=== PATIENT | female | born 1995 | race Caucasian/White ===

== ENCOUNTER 2017-03-23 02:16 | Inpatient (IN) | payer MEDICAID, OTHER ==
[2017-03-23] VITALS (39 sets, daily range): BP systolic 103–149; BP diastolic 45–86; PULSE 18–108; RESP 16–18; TEMP 97.6–98.4
[~2017-03-23] VITALS: Ht 175.3 cm; Wt 102.1 kg
[~2017-03-23 02:16] MED LIST: DEPO400I IM; Z.0.NO CURRENT MEDS
[2017-03-23] MEDS ORDERED: LACTATED RINGER'S 1000 ML INJ 1,000 ML IV PRN (03:43)
[2017-03-23] MEDS ORDERED: LACTATED RINGER'S 1000 ML INJ 1,000 ML IV SCH (03:43)
--- NOTE | 2017-03-23 03:43 | PD ---
HPI Chief Complaint Contractions Date Seen: Mar 23, 2017 Time Seen: 03:40 Travel History International Travel<30 Days: No Contact w/Intl Traveler<30Days: No Known Affected Area: No History of Present Illness HPI 21-year-old who is at 40 weeks gestation comes in due to contractions which have been going on since earlier this morning on March 22. Patient is group B strep negative and she was seen in the office yesterday with a cervix of 1 cm. Patient denies any obstetrical complications. Weeks Gestation: 40 Para: 0 : 1 History Past Medical History Medical History: Denies Significant Hx Past Surgical History Surgical History: No Previous Surgery Family History Family History: Negative Social History Alcohol Use: No Tobacco Use: No Substance Abuse: No Allergies-Medications (Allergen,Severity, Reaction): Coded Allergies: No Known Allergies (Verified , 03/23/17) Home Meds Reported Medications Miscellaneous (No Current Meds) Misc 06/01/11 Discontinued Reported Medications Medroxyprogesterone Acetate (Depo-Provera) 400 Mg/Ml Inj, 150 MG IM Q90D, INJ 01/18/14 Review of Systems Except as stated in HPI: all other systems reviewed are Neg Physical Exam Narrative GENERAL: Well-nourished, well-developed patient. SKIN: Warm and dry. HEAD: Normocephalic and atraumatic. EYES: No scleral icterus. No injection or drainage. ENT: No nasal drainage noted. Mucous membranes pink. Airway patent. NECK: Supple, trachea midline. No JVD. CARDIOVASCULAR: Regular rate and rhythm without murmurs, gallops, or rubs. RESPIRATORY: Breath sounds equal bilaterally. No accessory muscle use. BREASTS: Bilateral exam showed no masses , no retractions, no nipple discharge. ABDOMEN/GI: Abdomen soft, non-tender, bowel sounds present, no rebound, no guarding Gravid to [40-] weeks size Fundal Height: [-] GENITOURINARY: External Genitalia: intact and normal in appearance BUS glands: [-Normal] Cervix: [Mid position-] Dilatation: [-5] Effacement: [-100] Station: [--2] Presentation: [-Vertex] Membranes: [intact ] Uterine Contractions: [-Every 3-5] FHT's: Category: [-1] Baseline: [-140] Reactive: [-Moderate] Variability: [-Moderate] Decels: [Absent-] EXTREMITIES: No cyanosis or edema. BACK: Nontender without obvious deformity. No CVA tenderness. NEUROLOGICAL: Awake and alert. Motor and sensory grossly within normal limits. Five out of 5 muscle strength in all muscle groups. Normal speech. Data Data Vital Signs Reviewed: Yes Group B Strep: Negative [facility] Medical Record Reviewed: Yes Plan 21-year-old who is at 40 weeks gestation here in active labor, group B strep negative Will admit to labor patient does desire epidural Diagnosis Diagnosis: Primary Impression: 40 weeks gestation of Additional Impression: Irregular uterine contractions Joan Witt MD Mar 23, 2017 03:43
[2017-03-23] MEDS ORDERED: SODIUM CHLORID 0.9% 500 ML INJ 500 ML IV PRN (03:45)
[2017-03-23] MEDS ORDERED: LIDOCAINE HCL 1% 50 ML VIAL I-DERMAL PRN (03:45)
[2017-03-23] MEDS ORDERED: LIDOCAINE HCL 1% 50 ML VIAL INFIL PRN (03:45)
[2017-03-23] MEDS ORDERED: CITRIC ACID-SODIUM CITRATE LIQ 30 ML UDC PO SCH (03:45)
[2017-03-23] MEDS ORDERED: MINERAL OIL 10 ML VIAL TOPICAL PRN (03:45)
[2017-03-23] MEDS ORDERED: OXYTOCIN 30 UNITS-500ML PREMIX 500 ML IV ONE (03:45)
[2017-03-23] MEDS ORDERED: ONDANSETRON HCL 4 MG/2 ML VIAL IV PRN (03:45)
[2017-03-23] MEDS ORDERED: SODIUM CHLOR 0.9% 1000 ML INJ 1,000 ML IV PRN (04:03)
[2017-03-23] MEDS ORDERED: fentaNYL 2MCG-BUPIV 0.125% INJ 100 ML ONE (04:09)
[2017-03-23 04:17] LABS: BASOPHIL % 0.2 % (0.0-2.0); EOSINOPHIL % 0.3 % (0.0-4.0); HEMATOCRIT 35.8 % (35.0-46.0); HEMO FLAGS DIFF FINAL; LYMPH % 12.8 % (9.0-44.0); LYMPHOCYTE # 1.7 TH/MM3 (1.0-4.8); MEAN CELL VOLUME 79.4 FL (80.0-100.0); MEAN CORPUSCULAR HEMOGLOBIN 25.7 PG (27.0-34.0); MEAN CORPUSCULAR HGB CONC 32.4 % (32.0-36.0); MONO % 9.9 % (0.0-8.0); NEUT % 76.8 % (16.0-70.0); PLATELET COUNT 199 TH/MM3 (150-450); RED BLOOD COUNT 4.51 MIL/MM3 (4.00-5.30)
[2017-03-23 05:13] LABS: BACTERIA, URINE RARE /hpf; BLOOD, URINE NEG (NEG); GLUCOSE,URINE NEG (NEG); KETONE, URINE NEG (NEG); MUCUS URINE FEW /lpf (OCC); NITRITE,URINE NEG (NEG); SQUAMOUS EPITHELIAL CELL URINE <1 /hpf (0-5); URINE COLOR LIGHT-YELLOW (YELLW/STRAW)
[2017-03-23 05:24] LABS: COMMENT (UR) CULT NOT INDICATED; CULTURE IF INDICATED CULT NOT INDICATED
[2017-03-23] MEDS ORDERED: OXYTOCIN 30 UNITS-500ML PREMIX 500 ML IV SCH ×2 (05:45→10:15)
--- NOTE | 2017-03-23 05:51 | PD.LABORPN ---
Subjective Subjective doing well Objective Vital Signs Vital Signs Date Time Temp Pulse Resp B/P (MAP) Pulse Ox O2 Delivery O2 Flow Rate FiO2 03/23/17 05:31 92 119/64 (82) 03/23/17 05:15 101 124/76 (92) 03/23/17 05:03 93 111/65 (80) 03/23/17 04:47 76 103/61 (75) 03/23/17 04:40 89 03/23/17 04:38 115/64 (81) 03/23/17 04:35 94 119/65 (83) 03/23/17 04:35 82 03/23/17 04:31 103 132/77 (95) 03/23/17 04:25 84 03/23/17 04:25 71 136/60 (85) 03/23/17 04:20 91 03/23/17 04:20 90 139/80 (99) 03/23/17 04:15 108 149/80 (103) 03/23/17 04:13 78 121/56 (77) 03/23/17 03:58 98.1 18 18 03/23/17 03:55 73 134/81 (98) Objective Pelvic Exam: Cervix: [-] Dilatation: 7 Effacement: 80 Station: -1 Presentation: [-] Membranes: SROM Uterine Contractions: [-] FHT's: Category: 1 Baseline: [-] Reactive: [-] Variability: [-] Decels: [-] Weeks Gestation: 40 Gest Age Assessed Date: Mar 23, 2017 Gest Age Assessed Time: 05:00 Pt started active labor?: Yes Active labor start date: Mar 22, 2017 Active labor start time: 17:30 Medical induction of labor?: No Artificial rupture of membrane: Yes Artificial ROM date: Mar 23, 2017 Artifical ROM time: 05:40 Assessment/Plan Problem List: (1) 40 weeks gestation of ICD Codes: Z3A.40 - 40 weeks gestation of Status: Acute Wu Lay MD Mar 23, 2017 05:51
--- NOTE | 2017-03-23 10:14 | PD.OB.DELI ---
Weeks gestation: 40 Gest age assessed date: Mar 23, 2017 Gest age assessed time: 05:00 Pt started active labor?: Yes Active labor start date: Mar 22, 2017 Active labor start time: 17:30 Medical induction of labor?: No Artificial rupture of membrane: Yes Artificial ROM date: Mar 23, 2017 Artifical ROM time: 05:40 Anesthesia: Epidural Episiotomy: Midline Vaginal Delivery: Normal Presentation: Occiput anterior Nuchal Cord: x1 Delayed cord clamping (45 sec): Yes : Male, Single Delivery date: Mar 23, 2017 Delivery time: 09:49 One Minute : 8 Five Minute : 9 Weight: 9# 8 Placenta: Spontaneous delivery, Intact, 3 vessel cord Laceration: 2 deg Repair: Chromic running Estimated blood loss: 300 Wu Lay MD Mar 23, 2017 10:14
[2017-03-23] MEDS ORDERED: oxyCODONE/ACETAMINOPHEN 5 MG/325 MG TAB PO PRN ×2 (10:15)
[2017-03-23] MEDS ORDERED: ONDANSETRON ODT 4 MG TAB PO PRN (10:15)
[2017-03-23] MEDS ORDERED: ZOLPIDEM TARTRATE 5 MG TAB PO PRN (10:15)
[2017-03-23] MEDS ORDERED: ALUMINUM/MAGNESIUM/SIMETH 30 ML CUP PO PRN (10:15)
[2017-03-23] MEDS ORDERED: BENZOCAINE 20% TOPICAL SPRAY 60 ML CAN TOPICAL PRN (10:15)
[2017-03-23] MEDS ORDERED: WITCH HAZEL 50%/GLYCERIN 12.5% 40 PAD JAR TOPICAL PRN (10:15)
[2017-03-23] MEDS ORDERED: SODIUM CHLORIDE 0.9% FLUSH 10 ML FLUSH IV FLUSH PRN (10:15)
[2017-03-23] MEDS: IBUPROFEN 600 MG TAB PO PRN ×2 (10:51→18:34)
[2017-03-23] MEDS ORDERED: NO SYSTEM NARCOTICS PRN (11:15)
[2017-03-23] MEDS ORDERED: DO NOT ADMINISTER ANTICOAGULANTS PRN (11:15)
[2017-03-23] MEDS ORDERED: ePHEDrine/NS 25 MG/5 ML SYR IV PRN (11:15)
[2017-03-23] MEDS ORDERED: fentaNYL 2MCG-BUPIV 0.125% 100 ML EPIDURAL SCH (11:15)
[2017-03-23] MEDS ORDERED: DIPHTH/TETANUS/ACEL PERTUSSIS (BOOSTER) 0.5 ML VIAL/PFS IM ONE (16:00)
[2017-03-23] MEDS ORDERED: MEASLES, MUMPS, RUBELLA VACCINE 0.5 ML VIAL SQ ONE (16:00)
[2017-03-23] MEDS: ACETAMINOPHEN 325 MG TAB PO PRN (18:33)
[2017-03-23] MEDS: DOCUSATE SODIUM 50 MG/SENNA 8.6 MG TAB PO PRN (18:33)
[2017-03-23] MEDS ORDERED: SODIUM CHLORIDE 0.9% FLUSH 10 ML FLUSH IV FLUSH SCH (21:00)
[2017-03-24] MEDS: IBUPROFEN 600 MG TAB PO PRN ×2 (04:01→10:05)
[2017-03-24] MEDS: ACETAMINOPHEN 325 MG TAB PO PRN ×2 (04:01→10:06)
[2017-03-24 08:00] VITALS: BP 115/73; PULSE 69; RESP 16; TEMP 98
[2017-03-24] MEDS: DOCUSATE SODIUM 50 MG/SENNA 8.6 MG TAB PO PRN (10:05)
--- NOTE | 2017-03-24 14:06 | HHI.DCPOC ---
Discharge Care Plan Diagnosis: (1) 40 weeks gestation of Report Symptoms to Your Doctor -Temperature above 100.5 degrees -Redness, of incision or excessive or foul smelling drainage -Unusual pain or calf pain -Increased vaginal bleeding -Painful or difficulty urinating -Feelings of extreme sadness or anxiety after 2 weeks Goals to Promote Your Health * To prevent worsening of your condition and complications * To maintain your health at the optimal level Directions to Meet Your Goals Take your medications as prescribed Follow your dietary instruction Follow activity as directed Ensure plenty of rest for recovery Drink fluids for hydration Keep your appointments as scheduled Take your immunizations and boosters as scheduled If your symptoms worsen call your PCP, if no PCP go to Urgent Care Center or Emergency Room Smoking is Dangerous to Your Health. Avoid second hand smoke Call the 24-hour crisis hotline for domestic abuse at Salome Clement MD Mar 24, 2017 14:06
== END 2017-03-24 16:40 | disposition home or self-care (01) | DRG 775 ==
LOC: HOBED 02:16 → H2EA 03:43 → H1EA 12:30
PROVIDERS: ADMIT Obstetrics & Gynecology; ATTEND Obstetrics & Gynecology
PROC: 10E0XZZ Delivery of Products of Conception, External Approach (ICD-10-PCS; principal; 2017-03-23)
PROC: 0KQM0ZZ Repair Perineum Muscle, Open Approach (ICD-10-PCS; 2017-03-23)
PROC: 10907ZC Drainage of Amniotic Fluid, Therapeutic from Products of Conception, Via Natural or Artificial Opening (ICD-10-PCS; 2017-03-23)
PROC: 0W8NXZZ Division of Female Perineum, External Approach (ICD-10-PCS; 2017-03-23)
DX: O70.1 Second degree perineal laceration during delivery (principal); Z37.0 Single live birth; O69.81X0 Labor and delivery complicated by cord around neck, without compression, not applicable or unspecified; Z3A.40 40 weeks gestation of pregnancy
CPT/HCPCS: 81001; 85025; 86592; 86900; 86901; 90707; 90715; J2590; J7120